=== PATIENT | female | born 1995 | race Caucasian/White ===

== ENCOUNTER 2016-12-16 17:03 | Emergency (ER) | payer BC ==
[2016-12-16 17:04] VITALS: BP 115/80; PULSE 94; RESP 20; TEMP 98; O2SAT 95
[2016-12-16] MEDS ORDERED: NORE1DIS TOPICAL (21:27)
[2016-12-16] MEDS ORDERED: ZOLO50TA PO (21:27)
[2016-12-16 21:29] VITALS: BP 112/76; PULSE 78; RESP 16; O2SAT 100
[2016-12-16] MEDS ORDERED: SODIUM CHLOR 0.9% 1000 ML INJ 1,000 ML IV SCH (21:38)
[2016-12-16] MEDS ORDERED: ONDANSETRON HCL 4 MG/2 ML VIAL IVP ONE (21:45)
[2016-12-16] MEDS ORDERED: MORPHINE SULFATE 4 MG/ML INJ IV PUSH ONE (21:45)
[2016-12-16] MEDS: SODIUM CHLORIDE 0.9% FLUSH 5 ML FLUSH IVF PRN (21:57)
[2016-12-16 22:18] LABS: AUTOMATED NEUTROPHIL # 6.9 TH/MM3 (1.8-7.7); BASOPHIL # 0.1 TH/MM3 (0-0.2); BASOPHIL % 0.6 % (0.0-2.0); EOSINOPHIL # 0.1 TH/MM3 (0-0.4); EOSINOPHIL % 1.4 % (0.0-4.0); HEMATOCRIT 42.2 % (35.0-46.0); HEMO FLAGS DIFF FINAL; LYMPH % 26.9 % (9.0-44.0); LYMPHOCYTE # 2.8 TH/MM3 (1.0-4.8); MEAN CELL VOLUME 89.2 FL (80.0-100.0); MEAN CORPUSCULAR HEMOGLOBIN 30.5 PG (27.0-34.0); MEAN CORPUSCULAR HGB CONC 34.2 % (32.0-36.0); MONO % 4.5 % (0.0-8.0); NEUT % 66.6 % (16.0-70.0); PLATELET COUNT 261 TH/MM3 (150-450); RED BLOOD COUNT 4.73 MIL/MM3 (4.00-5.30); RED CELL DISTRIBUTION WIDTH 13.4 % (11.6-17.2); WHITE BLOOD COUNT 10.3 TH/MM3 (4.0-11.0)
[2016-12-16 22:35] LABS: BICARBONATE 26.9 MEQ/L (21.0-32.0)
--- NOTE | 2016-12-16 23:15 | PD ---
HPI . Right lower quadrant pain Chief Complaint: Abdominal Pain Time Seen by Provider: 21:38 Travel History International Travel<30 days: No Contact w/Intl Traveler<30days: No Traveled to known affect area: No History of Present Illness HPI Patient presents with right lower quadrant pain which started yesterday. It is associated with nausea and poor appetite. She also reports decreased urinary output. She further reports a vaginal discharge. States that she's had this several times before and has been evaluated and found to have a ruptured ovarian cyst. She states that she was sent here by [facility] for rule out appendicitis. [id number]: Right lower quadrant SEVERITY: Severe DURATION: 24 hours TIMING: Continuous CONTEXT: History of ovarian cyst MODIFYING FACTORS: No exacerbating or relieving factors ASSOCIATED SYMPTOMS: Associated with nausea and poor appetite PFSH Past Medical History Depression: Yes Reproductive: Yes (PCOS ) ?: Not LMP: 12/16/2016 Past Surgical History Surgical History: No Previous Surgery Social History Alcohol Use: Yes (occasionaly ) Tobacco Use: No Substance Use: No Allergies-Medications (Allergen,Severity, Reaction): Coded Allergies: [place] Seed Oil (Verified Allergy, Severe, 12/16/16) N/V Reported Meds & Prescriptions Reported Meds & Active Scripts Active Reported Xulane 150/35 Patch 7 DAY (Norelgestromin-Ethinyl Estradiol Patch 7 DAY) 150-35 MCG/24Hr Patch 1 Patch TOPICAL Q7D A new patch is applied each week for 3 weeks (21 total days). Week 4 is patch-free. Zoloft (Sertraline HCl) 50 Mg Tab 50 Mg PO DAILY Review of Systems Except as stated in HPI: all other systems reviewed are Neg General / Constitutional: No: Fever, Chills Cardiovascular: No: Chest Pain or Discomfort Respiratory: No: Shortness of Breath Gastrointestinal: Positive: Nausea, Abdominal Pain, Loss of Appetite, No: Vomiting, Diarrhea Genitourinary: No: Urgency, Frequency, Dysuria Physical Exam Narrative GENERAL: Patient is awake and alert and in no acute distress. SKIN: Warm and dry. HEAD: Atraumatic. Normocephalic. EYES: Pupils equal and round. ENT: No nasal bleeding or discharge. Mucous membranes pink and moist. NECK: Trachea midline. Neck is supple. CARDIOVASCULAR: Regular rate and rhythm. Heart sounds are normal. RESPIRATORY: No accessory muscle use. Lungs are clear with full air movement throughout. GASTROINTESTINAL: Abdomen soft. Right lower quadrant tenderness. Nondistended. Normal bowel sounds. : Normal female. There is a scant amount of old blood in the vaginal vault. There is no cervical motion tenderness. There is right adnexal tenderness. MUSCULOSKELETAL: No obvious deformities. No edema. NEUROLOGICAL: Awake and alert. No obvious cranial nerve deficits. Motor grossly within normal limits. Normal speech. PSYCHIATRIC: Appropriate mood and affect; insight and judgment normal. Data Data Last Documented VS Vital Signs Date Time Temp Pulse Resp B/P Pulse Ox O2 Delivery O2 Flow Rate FiO2 12/16/16 21:29 78 16 112/76 100 12/16/16 17:04 98.0 Room Air Orders Basic Metabolic Panel (Bmp) (12/16/16 21:38) Complete Blood Count With Diff (12/16/16 21:38) Urinalysis - C+S If Indicated (12/16/16 21:38) Iv Access Insert/Monitor (12/16/16 21:38) Ecg Monitoring (12/16/16 21:38) Oximetry (12/16/16 21:38) Morphine Inj (Morphine Inj) (12/16/16 21:45) Ondansetron Inj (Zofran Inj) (12/16/16 21:45) Sodium Chlor 0.9% 1000 Ml Inj (Ns 1000 M (12/16/16 21:38) Sodium Chloride 0.9% Flush (Ns Flush) (12/16/16 21:45) Ed Urine Pregnancytest Poc (12/16/16 21:38) Gc And Chlamydia Pcr (12/16/16 23:11) Wet Prep Profile (12/16/16 23:11) Ct Abd/Pel W Iv Contrast(Rout) (12/17/16 ) Iohexol 350 Inj (Omnipaque 350 Inj) (12/17/16 00:14) Labs Laboratory Tests Test 12/16/16 12/16/16 21:45 23:40 White Blood Count 10.3 TH/MM3 Red Blood Count 4.73 MIL/MM3 Hemoglobin 14.4 GM/DL Hematocrit 42.2 % Mean Corpuscular Volume 89.2 FL Mean Corpuscular Hemoglobin 30.5 PG Mean Corpuscular Hemoglobin 34.2 % Concent Red Cell Distribution Width 13.4 % Platelet Count 261 TH/MM3 Mean Platelet Volume 8.4 FL Neutrophils (%) (Auto) 66.6 % Lymphocytes (%) (Auto) 26.9 % Monocytes (%) (Auto) 4.5 % Eosinophils (%) (Auto) 1.4 % Basophils (%) (Auto) 0.6 % Neutrophils # (Auto) 6.9 TH/MM3 Lymphocytes # (Auto) 2.8 TH/MM3 Monocytes # (Auto) 0.5 TH/MM3 Eosinophils # (Auto) 0.1 TH/MM3 Basophils # (Auto) 0.1 TH/MM3 CBC Comment DIFF FINAL Differential Comment Sodium Level 140 MEQ/L Potassium Level 4.0 MEQ/L Chloride Level 105 MEQ/L Carbon Dioxide Level 26.9 MEQ/L Anion Gap 8 MEQ/L Blood Urea Nitrogen 6 MG/DL Creatinine 0.72 MG/DL Estimat Glomerular Filtration 103 ML/MIN Rate Random Glucose 74 MG/DL Calcium Level 8.8 MG/DL Urine Color LIGHT-YELLOW Urine Turbidity CLEAR Urine pH 6.0 Urine Specific [place] 1.006 Urine Protein NEG mg/dL Urine Glucose (UA) NEG mg/dL Urine Ketones NEG mg/dL Urine Occult Blood SMALL Urine Nitrite NEG Urine Bilirubin NEG Urine Urobilinogen LESS THAN 2.0 MG/DL Urine Leukocyte Esterase NEG Urine RBC LESS THAN 1 /hpf Urine WBC LESS THAN 1 /hpf Urine Squamous Epithelial 1 /hpf Cells Urine Mucus FEW /lpf Microscopic Urinalysis Comment CULT NOT INDICATED Clue Cells (Wet Prep) NONE SEEN Vaginal Trichomonas (Wet Prep) NONE SEEN Vaginal Yeast (Wet Prep) NONE SEEN MDM Medical Decision Making Medical Screen Exam Complete: Yes Emergency Medical Condition: Yes Differential Diagnosis Differential diagnosis of abdominal pain includes but is not limited to gastritis, pancreatitis, hepatitis, gastroenteritis, gallbladder disease, constipation, urinary retention, UTI, peptic ulcer disease, diverticulitis or appendicitis Narrative Course Patient presents with a 24-hour history of right lower quadrant abdominal pain. CBC & BMP Diagram 12/16/16 21:45 UA is negative. HCG is negative. Wet prep is negative. CT is normal. The patient is very frustrated that we have not found anything wrong. She states that this is her third time with the exact same thing. She reports that she has followed up with gynecology and has been told that she had polycystic ovarian disease and that she has endometriosis. She is on hormonal therapy to prevent recurrence. The hormones have apparently not worked. She is inquiring about a possible hysterectomy. Diagnosis Primary Impression: Right lower quadrant pain Referrals: [facility] Patient Instructions: General Instructions, Pelvic Pain (ED) Med/Other Pt SpecificInfo: Prescription(s) given Scripts Tramadol (Ultram)50 Mg Tab50 Mg PO Q4H PRN (PAIN) #15 TAB Ref 0 Prov:Ginette Michel MD 12/17/16 Ibuprofen 800 Mg [id number] Mg PO Q8H PRN (pain) #30 TAB Ref 0 Prov:Ginette Michel MD 12/17/16 Disposition: 01 DISCHARGE HOME Condition: Stable Ginette Michel MD Dec 16, 2016 23:15
[2016-12-16 23:48] LABS: BLOOD, URINE SMALL (NEG); COMMENT (UR) CULT NOT INDICATED; CULTURE IF INDICATED CULT NOT INDICATED; GLUCOSE,URINE NEG (NEG); KETONE, URINE NEG (NEG); MUCUS URINE FEW /lpf (OCC); NITRITE,URINE NEG (NEG); SQUAMOUS EPITHELIAL CELL URINE 1 /hpf (0-5); URINE COLOR LIGHT-YELLOW (YELLW/STRAW)
[2016-12-17] MEDS ORDERED: IOHEXOL 350 MG/ML 10 ML VIAL (for RAD DIAG) IV ONE (00:14)
--- NOTE | 2016-12-17 00:27 | RADRPT ---
EXAM DATE/TIME: 12/17/2016 00:05 [facility] COMPARISON: No previous studies available for comparison. INDICATIONS : Right upper quadrant pain. IV CONTRAST: 90 cc Omnipaque 350 (iohexol) IV ORAL CONTRAST: No oral contrast ingested. RADIATION DOSE: 9.96 CTDIvol (mGy) MEDICAL HISTORY : None SURGICAL HISTORY : None. ENCOUNTER: Initial ACUITY: 1 day PAIN SCALE: 7/10 LOCATION: Right upper quadrant TECHNIQUE: Volumetric scanning of the abdomen and pelvis was performed. Using automated exposure control and ad justment of the mA and/or kV according to patient size, radiation dose was kept as low as reasonably achievable to obtain optimal diagnostic quality images. FINDINGS: LOWER LUNGS: The visualized lower lungs are clear. LIVER: Homogeneous density without lesion. There is no dilation of the biliary tree. No calcified gallston es. SPLEEN: Normal size without lesion. PANCREAS: Within normal limits. KIDNEYS: Normal in size and shape. There is no mass, stone or hydronephrosis. ADRENAL GLANDS: Within normal limits. VASCULAR: There is no aortic aneurysm. BOWEL/MESENTERY: The stomach, small bowel, and colon demonstrate no acute abnormality. There is no free intraperitone al air or fluid. ABDOMINAL WALL: Within normal limits. RETROPERITONEUM: There is no lymphadenopathy. BLADDER: No wall thickening or mass. REPRODUCTIVE: Within normal limits. INGUINAL: There is no lymphadenopathy or hernia. MUSCULOSKELETAL: Within normal limits for patient age. CONCLUSION: Normal examination. Alex Major MD on December 17, 2016 at 0:24 Board Certified Radiologist. This report was verified electronically.
[2016-12-17] MEDS ORDERED: IBUP800T23 PO (00:37)
[2016-12-17] MEDS ORDERED: ULTR50TA5 PO (00:37)
[2016-12-17] MEDS ORDERED: KETOROLAC TROMETHAMINE 30 MG/ML (IVP) VIAL IV PUSH ONE (00:45)
[2016-12-17] MEDS ORDERED: HYDROmorphone HCL PF 1 MG/ML VIAL IV PUSH ONE (00:45)
[2016-12-17] MEDS: SODIUM CHLORIDE 0.9% FLUSH 5 ML FLUSH IVF PRN (00:56)
[2016-12-17 00:57] VITALS: BP 110/58; PULSE 77; RESP 14; O2SAT 98
[2016-12-17 01:57] LABS: CHLAMYDIA PCR NOT DETECTED (NOT DETECT); NEISSERIA PCR NOT DETECTED (NOT DETECT)
== END 2016-12-17 01:07 | disposition home or self-care (01) ==
LOC: NEPA 17:03
DX: R10.31 Right lower quadrant pain (principal); E28.2 Polycystic ovarian syndrome; N80.9 Endometriosis, unspecified
CPT/HCPCS: 74177; 80048; 81001; 84703; 85025; 87210; 87491; 87591; 96361; 96374; 96375; 99284; J1170; J1885; J2270; J2405; J7030; Q9967